=== PATIENT | male | born 1950 | race Caucasian/White ===

== ENCOUNTER 2018-06-20 10:29 | Inpatient (IN) | payer MEDICARE | END 2018-06-22 11:15 | disposition home or self-care (01) | LOC: ER 10:29 → ED HOLD 14:22 → PCU 3S 19:33 | DX: R07.9 Chest pain, unspecified (principal); I48.2 Chronic atrial fibrillation; E11.8 Type 2 diabetes mellitus with unspecified complications ==

== ENCOUNTER 2018-07-09 05:46 | Inpatient (IN) | payer MEDICARE ==
[~2018-07-09] VITALS: Ht 177.8 cm; Wt 96.4 kg
[~2018-07-09 05:46] MED LIST: ATOR40TA71 PO; CARV25TA2 PO; CLON0.3T PO; DILT240C PO; FLEC100T PO; LOSA25TA41 PO; METF-950 PO; RIVA20TA PO
[2018-07-09] MEDS ORDERED: normal saline 1000ml 1,000 ML IV ONE (06:30)
[2018-07-09] MEDS ORDERED: ondansetron/PF 4mg/2ml inj IV ONE (06:30)
[2018-07-09] MEDS ORDERED: HYDROcodone/acetaminophen 5mg/325mg tablet PO ONE (06:35)
[2018-07-09 07:37] LABS: BASOPHILS % (AUTO) 0.3 % (0-1); EOSINOPHILS % (AUTO) 0.2 % (0-6); HEMATOCRIT 48.9 % (42.0-52.0); HEMOGLOBIN 17.1 g/dl (14.0-17.9); LYMPHOCYTES # (AUTO) 1.5 X10'3 (1.1-4.8); LYMPHOCYTES % (AUTO) 13.9 % (21-51); MEAN CORPUSCULAR HEMOGLOBIN 31.5 PG (27.0-31.0); MEAN CORPUSCULAR HGB CONC 35.1 g/dL (33.0-36.5); MEAN CORPUSCULAR VOLUME 89.9 FL (78-98); MEAN PLATELET VOLUME 8.5 FL (7.4-10.4); MONOCYTES # (AUTO) 0.8 X10'3 (0-0.9); MONOCYTES % (AUTO) 7.6 % (2-12); NEUTROPHILS # (AUTO) 8.4 X10'3 (1.8-7.7); PLATELET COUNT 292 X10'3 (140-440); RED BLOOD COUNT 5.44 X10'6 (4.70-6.10); RED CELL DISTRIBUTION WIDTH 13.4 % (11.5-14.5); WHITE BLOOD COUNT 10.8 X10'3 (4.5-11.0)
[2018-07-09 07:48] LABS: ALANINE AMINOTRANSFERASE 25 U/L (12-78); ALBUMIN 3.8 G/DL (3.4-5.0); ALBUMIN/GLOBULIN RATIO 0.9 (1.1-1.5); ALKALINE PHOSPHATASE 155 IU/L (46-116); ANION GAP 8 (8-16); ASPARTATE AMINO TRANSFERASE 15 U/L (10-37); BILIRUBIN,TOTAL 0.9 MG/DL (0.1-1.0); BLOOD UREA NITROGEN 17 MG/DL (7-18); BUN/CREATININE RATIO 16.2 (5.4-32.0); CALCIUM 9.9 MG/DL (8.5-10.1); CHLORIDE 100 MMOL/L (99-107); CREATININE 1.05 MG/DL (0.60-1.10); GLUCOSE 149 MG/DL (70-104); LIPASE 69 U/L (73-393); POTASSIUM 3.5 MMOL/L (3.5-5.1); SODIUM 138 MMOL/L (135-145); TOTAL CARBON DIOXIDE 29.8 MMOL/L (24-32); TOTAL PROTEIN 8.2 G/DL (6.4-8.2); eGFR 70 ML/MIN
[2018-07-09] MEDS ORDERED: proCHLORperazine 10 MG/2 ml inj IV ONE (07:50)
[2018-07-09] MEDS ORDERED: morphine 4 MG/ML inj SYRINge IV ONE (07:50)
[2018-07-09 07:54] LABS: INR 1.2 INR; PARTIAL THROMBOPLASTIN TIME 34 SECONDS (22-32); PROTHROMBIN TIME 12.1 SECONDS (9.0-12.0)
[2018-07-09] MEDS ORDERED: magnesium 2GM in 50ml NS 50 ML IV PRN (09:55)
[2018-07-09] MEDS ORDERED: potassium Cl 20 mEq SR tablet PO PRN ×2 (09:55)
[2018-07-09] MEDS ORDERED: magnesium Cl slow-release 64mg tablet PO PRN (09:55)
[2018-07-09] MEDS ORDERED: magnesium 4gm in 100ml NS 100 ML IV PRN (09:55)
[2018-07-09] MEDS ORDERED: magnesium hydroxide 30ml (MOM) UD suspension PO PRN (09:55)
[2018-07-09] MEDS ORDERED: ondansetron/PF 4mg/2ml inj IV PRN (09:55)
[2018-07-09] MEDS ORDERED: morphine 4 MG/ML inj SYRINge IV PRN (09:55)
[2018-07-09] MEDS ORDERED: acetaminophen 325mg tablet PO PRN ×2 (09:55)
[2018-07-09] MEDS ORDERED: HYDROcodone/acetaminophen 5mg/325mg tablet PO PRN (09:55)
[2018-07-09] MEDS ORDERED: potassium Cl 40MEQ/NS 500ml 500 ML IV PRN ×2 (09:55)
[2018-07-09] MEDS ORDERED: dextrose 50%-water 50ml dispensing syringe IV PRN ×2 (10:10)
[2018-07-09] MEDS ORDERED: insulin Lispro (HumaLOG) vial - multi-dose SQ SCH (10:10)
[2018-07-09] MEDS ORDERED: glucagon, human recombinant 1mg kit SUBCUT PRN (10:10)
[2018-07-09] MEDS ORDERED: dextrose ORAL solution 15 GM/59 ML bottle PO PRN ×2 (10:10)
[2018-07-09] MEDS ORDERED: MESSAGE TO PHARMACY PO ONE (10:10)
[2018-07-09] MEDS: normal saline 1000ml 1,000 ML IV SCH ×3 (10:13→20:45)
--- NOTE | 2018-07-09 13:12 | NUR ---
Called into pt room after family noticied blood drainage from NG tube. Small amount of bright red blood seen in tubing. Discussed findings with KALLIE Victoria; who advises monitoring drainage for further blood return.
[2018-07-09 13:28] LABS: HEMOGLOBIN A1C 6.2 % (4.5-6.2)
[2018-07-09 16:38] LABS: CLARITY,URINE CLEAR (Clear); COLOR,URINE YELLOW (Yellow); GLUCOSE, URINE NEGATIVE (Neg); KETONES,URINE NEGATIVE (Neg); LEUKOCYTE ESTERASE ,URINE NEGATIVE (Neg); NITRITES, URINE NEGATIVE (Neg); OCCULT BLOOD,URINE TRACE-INTACT (Neg); PH,URINE 6.5 (4.8-8.0); PROTEIN,URINE 30 mg/dl (Neg); UROBILINOGEN,URINE 0.2 E.U/dL (0.2-1.0)
[2018-07-09 16:43] LABS: UA COLLECTION TYPE URINAL
[2018-07-09 16:45] LABS: BACTERIA,URINE NONE SEEN /HPF (Neg); MUCUS STRANDS NONE SEEN /LPF (Neg); RBC,URINE 0-2 /HPF (0-2); SQUAMOUS EPITHELIAL CELL,UR NONE SEEN /LPF (FEW); WBC,URINE NONE SEEN /HPF (0-4)
--- NOTE | 2018-07-09 17:40 | NUR ---
Patient assisted to a position of comfort on hospital bed. Patient c/o increased chronic neck, patient was given morphine 1 mg with no relief and has an order for norco, but patient is NPO currently with NG tube placed. Dr. Kemp page regarding pain complaint.
--- NOTE | 2018-07-09 17:44 | NUR ---
Spoke to Dr. Kemp regarding pt's pain and pain medication ordered. Per MD, given the pt's history she is not comfortable ordering anything further for the pt's pain.
--- NOTE | 2018-07-09 17:50 | NUR ---
Spoke with Dr. Kemp regarding need to have her come to evaluate patient, due to increased dark bloody emesis from NG tube. Dr. Kemp stated that she would come and see patient as soon as she could.
[2018-07-09 18:00] VITALS: BP 164/83
--- NOTE | 2018-07-09 18:10 | NUR ---
Dr. Kemp in patients room to evaluate him, Dr. Kemp stated to give Protonix 40 mg IV x1 stat once now, hemogram draw STAT now and chest xray to check for NG tube placement. Will place orders per MD.
[2018-07-09] MEDS ORDERED: pantoprazole 40 MG vial IV ONE ×3 (18:20→19:20)
--- NOTE | 2018-07-09 18:42 | NUR ---
Spoke with Dr. Kemp regarding patient, She requested for me to place verbal order for protonix drip and to perform hemogram Q8H as a timed draw. Patient will not be receiving CT with IV contrast at this time. Dr. Kemp also stated that she has spoken with Dr. Copeland at this time there is no indication for surgical intervention and patient needs to be placed on gravity suction, no wall suction. Patient will need a total of 80 mg IV protonix and Protonix drip at a rate of 8 mg/hr. Dr. Copeland stated that if patient is continuing to bleed as evident by a decrease in H&H, need to contact him for Endoscopy. Patient may need a repeat CT scan, if no bleeding per Dr. Kemp.
--- NOTE | 2018-07-09 18:58 | NUR ---
Bijan ROTHMAN aware of new orders.
[2018-07-09] MEDS: pantoprazole 40MG/NS 100ML BAG 100 ML IV SCH ×2 (19:00→20:45)
[2018-07-09 19:04] LABS: HEMATOCRIT 50.6 % (42.0-52.0); HEMOGLOBIN 16.9 g/dl (14.0-17.9); MEAN CORPUSCULAR HEMOGLOBIN 30.5 PG (27.0-31.0); MEAN CORPUSCULAR HGB CONC 33.3 g/dL (33.0-36.5); MEAN CORPUSCULAR VOLUME 91.6 FL (78-98); MEAN PLATELET VOLUME 8.2 FL (7.4-10.4); PLATELET COUNT 302 X10'3 (140-440); RED BLOOD COUNT 5.53 X10'6 (4.70-6.10); RED CELL DISTRIBUTION WIDTH 13.6 % (11.5-14.5); WHITE BLOOD COUNT 12.2 X10'3 (4.5-11.0)
[2018-07-09] MEDS: metroNIDAZOLE-Flagyl 500mg/NS 100 ML IV SCH (19:31)
[2018-07-09] MEDS ORDERED: diatr meglu/diatrizoate 30ml oral sol.-(3 dose) bottle PO ONE (20:00)
[2018-07-09] MEDS ORDERED: heparin, porcine 5000 units/ml vial SQ SCH (20:00)
[2018-07-09] MEDS ORDERED: hydrALAZINE 20mg/ml inj. IV PRN (20:35)
[2018-07-09] MEDS ORDERED: insulin glargine (Lantus) pen - multi-dose SQ SCH (21:00)
[2018-07-09] MEDS ORDERED: temazepam 15mg capsule PO PRN (21:00)
[2018-07-09] MEDS: morphine 4 MG/ML inj SYRINge IV PRN (21:56)
[2018-07-10] VITALS: BP 120/81
[2018-07-10 00:30] VITALS: BP 164/90
[2018-07-10] MEDS ORDERED: carVEDilol 12.5mg tablet PO ONE (00:45)
[2018-07-10] MEDS: pantoprazole 40MG/NS 100ML BAG 100 ML IV SCH ×2 (01:00→08:32)
[2018-07-10 02:31] LABS: BASOPHILS # (AUTO) 0.1 X10'3 (0-0.2); EOSINOPHILS % (AUTO) 0.3 % (0-6); HEMATOCRIT 46.7 % (42.0-52.0); HEMOGLOBIN 15.5 g/dl (14.0-17.9); LYMPHOCYTES # (AUTO) 1.3 X10'3 (1.1-4.8); LYMPHOCYTES % (AUTO) 12.2 % (21-51); MEAN CORPUSCULAR HEMOGLOBIN 30.5 PG (27.0-31.0); MEAN CORPUSCULAR HGB CONC 33.1 g/dL (33.0-36.5); MEAN PLATELET VOLUME 7.7 FL (7.4-10.4); MONOCYTES # (AUTO) 1.2 X10'3 (0-0.9); MONOCYTES % (AUTO) 11.4 % (2-12); NEUTROPHILS # (AUTO) 8.1 X10'3 (1.8-7.7); NEUTROPHILS % (AUTO) 75.1 % (42-75); PLATELET COUNT 250 X10'3 (140-440); RED BLOOD COUNT 5.07 X10'6 (4.70-6.10); RED CELL DISTRIBUTION WIDTH 13.6 % (11.5-14.5); WHITE BLOOD COUNT 10.8 X10'3 (4.5-11.0)
[2018-07-10 02:52] LABS: ALANINE AMINOTRANSFERASE 22 U/L (12-78); ALBUMIN 3.2 G/DL (3.4-5.0); ALBUMIN/GLOBULIN RATIO 0.9 (1.1-1.5); ALKALINE PHOSPHATASE 126 IU/L (46-116); ANION GAP 7 (8-16); ASPARTATE AMINO TRANSFERASE 14 U/L (10-37); BLOOD UREA NITROGEN 16 MG/DL (7-18); BUN/CREATININE RATIO 14.7 (5.4-32.0); CALCIUM 8.6 MG/DL (8.5-10.1); CHLORIDE 106 MMOL/L (99-107); CREATININE 1.09 MG/DL (0.60-1.10); GLUCOSE 126 MG/DL (70-104); MAGNESIUM 1.9 MG/DL (1.5-2.4); POTASSIUM 3.6 MMOL/L (3.5-5.1); SODIUM 140 MMOL/L (135-145); TOTAL CARBON DIOXIDE 27.4 MMOL/L (24-32); TOTAL PROTEIN 6.7 G/DL (6.4-8.2); eGFR 67 ML/MIN
[2018-07-10 04:01] VITALS: BP 153/68
--- NOTE | 2018-07-10 06:41 | NUR ---
Patient in room [facility] 346. I have received report from Bijan ROTHMAN and had the opportunity to ask questions and assume patient care.
--- NOTE | 2018-07-10 06:50 | NUR ---
Problems reprioritized. Patient report given, questions answered & plan of care reviewed with Camrelina ROTMHAN.
[2018-07-10 07:00] VITALS: BP 160/85
[2018-07-10] MEDS: metroNIDAZOLE-Flagyl 500mg/NS 100 ML IV SCH ×2 (07:13→07:16)
[2018-07-10] MEDS ORDERED: losartan 25mg tablet PO SCH (08:00)
[2018-07-10] MEDS ORDERED: diltiazem CD 120mg capsule (once-daily) PO SCH (08:00)
[2018-07-10] MEDS ORDERED: K and/or MAG REPLACEMENT MC SCH (08:00)
[2018-07-10] MEDS ORDERED: carVEDilol 12.5mg tablet PO SCH ×2 (08:00→20:00)
[2018-07-10] MEDS ORDERED: cloNIDine 0.1 mg tablet PO SCH (08:00)
[2018-07-10] MEDS ORDERED: flecainide 50mg tablet PO SCH (08:00)
[2018-07-10] MEDS ORDERED: atorvastatin 20mg tablet PO SCH (08:00)
[2018-07-10] MEDS: morphine 4 MG/ML inj SYRINge IV PRN (09:43)
--- NOTE | 2018-07-10 11:11 | NUR ---
D/c'd NGT as per MD order. Patient tolerated well
--- NOTE | 2018-07-10 11:39 | NUR ---
DM consult: Pt with A1c 6.2; DM ed not warranted at this time. Will continue to follow. Addendum: 07/10/18 at [address] Amended: Links added.
[2018-07-10 12:00] VITALS: BP 138/72
[2018-07-10] MEDS ORDERED: PANT40TA4 PO (12:59)
--- NOTE | 2018-07-10 13:39 | NUR ---
Discharge instructions given to patient, patient verbalized understanding of all instructions made. Patient tolerated the clear liquid lunch served to him. Peripheral IV catheter removed, tip intact. Instructed patient to ensure he has all his belongings with him before leaving. Written yellow prescription for Pantoprazole given to patient. Encouraged patient to sign up for Diabetes Survival skills class offered at [facility]. Latest A1C of 6.2 was discussed with patient.
== END 2018-07-10 13:50 | disposition home or self-care (01) | DRG 390 ==
LOC: ER 05:47 → ED HOLD 09:52 → SUR 3N 19:20
PROVIDERS: ADMIT Internal Medicine; ATTEND Family Medicine
PROC: 0D9670Z Drainage of Stomach with Drainage Device, Via Natural or Artificial Opening (ICD-10-PCS; principal; 2018-07-09)
DX: K56.609 Unspecified intestinal obstruction, unspecified as to partial versus complete obstruction (principal); E11.9 Type 2 diabetes mellitus without complications; E78.5 Hyperlipidemia, unspecified; F12.10 Cannabis abuse, uncomplicated; G89.4 Chronic pain syndrome; I10 Essential (primary) hypertension; I25.10 Atherosclerotic heart disease of native coronary artery without angina pectoris; M54.9 Dorsalgia, unspecified; I48.2 Chronic atrial fibrillation; K21.9 Gastro-esophageal reflux disease without esophagitis; Z79.01 Long term (current) use of anticoagulants; Z79.84 Long term (current) use of oral hypoglycemic drugs; Z79.899 Other long term (current) drug therapy; Z82.3 Family history of stroke; Z82.49 Family history of ischemic heart disease and other diseases of the circulatory system; Z87.891 Personal history of nicotine dependence; Z88.5 Allergy status to narcotic agent
CPT/HCPCS: 36415; 71045; 74018; 74176; 76700; 80053; 81001; 82948; 83036; 83605; 83690; 83735; 84484; 85025; 85027; 85610; 85730; 87070; 93005; 96361; 96374; 96375; 99285; C9113; G0378; J0360; J0780; J1815; J2270; J2405; J3490; J7030; Q9963

== ENCOUNTER 2018-09-03 09:23 | Emergency (ER) | payer MEDICARE, OTHER ==
[~2018-09-03] VITALS: Ht 165.1 cm; Wt 95.3 kg
[~2018-09-03 09:23] MED LIST changes: +PANT40TA4 PO
--- NOTE | 2018-09-03 10:48 | NUR ---
Cancel trauma per .Guero ROTHMAN aware.
--- NOTE | 2018-09-03 10:48 | NUR ---
Dr. Moody cleared from trauma
[2018-09-03 10:51] VITALS: BP 181/109
[2018-09-03] MEDS ORDERED: ONDA4TAB6 PO (11:13)
[2018-09-03] MEDS ORDERED: HYDR-3965 PO (11:13)
[2018-09-03] MEDS ORDERED: TETanus/Pertussis (Acell)/Diphther VAC/PF (Tdap-Adult) 0.5ml syringe IM ONE (11:20)
[2018-09-03] MEDS ORDERED: acetaminophen 325mg tablet PO ONE (11:35)
== END 2018-09-03 12:55 | disposition home or self-care (01) ==
LOC: ER 09:24
DX: S06.0X0A Concussion without loss of consciousness, initial encounter (principal); S82.832A Other fracture of upper and lower end of left fibula, initial encounter for closed fracture; S90.02XA Contusion of left ankle, initial encounter; S80.212A Abrasion, left knee, initial encounter; I10 Essential (primary) hypertension; I48.91 Unspecified atrial fibrillation; E11.9 Type 2 diabetes mellitus without complications; G89.29 Other chronic pain; Z56.0 Unemployment, unspecified; Z88.5 Allergy status to narcotic agent; Z79.899 Other long term (current) drug therapy; W01.0XXA Fall on same level from slipping, tripping and stumbling without subsequent striking against object, initial encounter; Y93.89 Activity, other specified; Y92.89 Other specified places as the place of occurrence of the external cause; Y99.8 Other external cause status
CPT/HCPCS: 29515; 70450; 72125; 73610; 90471; 90715; 99284

== ENCOUNTER 2018-09-07 00:58 | Inpatient (IN) | payer MEDICARE, OTHER ==
[2018-09-07] VITALS (7 sets, daily range): BP systolic 103–165; BP diastolic 55–83
[~2018-09-07] VITALS: Ht 165.1 cm; Wt 98.0 kg
[~2018-09-07 00:58] MED LIST changes: +HYDR-3965 PO; +ONDA4TAB6 PO
[2018-09-07 01:28] LABS: BASOPHILS % (AUTO) 0.5 % (0-1); EOSINOPHILS # (AUTO) 0.1 X10'3 (0-0.9); EOSINOPHILS % (AUTO) 1.5 % (0-6); HEMATOCRIT 42.9 % (42.0-52.0); HEMOGLOBIN 14.6 g/dl (14.0-17.9); LYMPHOCYTES # (AUTO) 1.5 X10'3 (1.1-4.8); LYMPHOCYTES % (AUTO) 19.3 % (21-51); MEAN CORPUSCULAR HEMOGLOBIN 31.3 PG (27.0-31.0); NEUTROPHILS # (AUTO) 5.3 X10'3 (1.8-7.7); NEUTROPHILS % (AUTO) 66.7 % (42-75); PLATELET COUNT 235 X10'3 (140-440); RED BLOOD COUNT 4.66 X10'6 (4.70-6.10); RED CELL DISTRIBUTION WIDTH 13.9 % (11.5-14.5); WHITE BLOOD COUNT 7.9 X10'3 (4.5-11.0)
[2018-09-07 01:41] LABS: PARTIAL THROMBOPLASTIN TIME 28 SECONDS (22-32)
[2018-09-07 01:44] LABS: ALANINE AMINOTRANSFERASE 23 U/L (12-78); ALBUMIN 3.1 G/DL (3.4-5.0); ALBUMIN/GLOBULIN RATIO 0.8 (1.1-1.5); ALKALINE PHOSPHATASE 104 IU/L (46-116); ANION GAP 10 (8-16); ASPARTATE AMINO TRANSFERASE 15 U/L (10-37); BILIRUBIN,TOTAL 0.7 MG/DL (0.1-1.0); BLOOD UREA NITROGEN 19 MG/DL (7-18); BUN/CREATININE RATIO 23.2 (5.4-32.0); CHLORIDE 102 MMOL/L (99-107); CREATININE 0.82 MG/DL (0.60-1.10); ETHANOL < 0.010 GM/DL (0.0-0.010); GLUCOSE 135 MG/DL (70-104); POTASSIUM 3.6 MMOL/L (3.5-5.1); SODIUM 137 MMOL/L (135-145); TOTAL CARBON DIOXIDE 24.6 MMOL/L (24-32); eGFR > 90 ML/MIN
[2018-09-07 02:06] LABS: URINE AMPHETAMINE SCREEN NEGATIVE (Neg); URINE BARBITUATE SCREEN NEGATIVE (Neg); URINE BENZODIAZEPINES SCREEN NEGATIVE (Neg); URINE CANNABINOID SCREEN NEGATIVE (Neg); URINE COCAINE SCREEN NEGATIVE (Neg); URINE METHADONE SCREEN NEGATIVE (Neg); URINE OPIATE SCREEN POSITIVE (Neg); URINE PHENCYCLIDINE SCREEN NEGATIVE (Neg)
[2018-09-07] MEDS ORDERED: acetaminophen 325mg tablet PO ONE (02:35)
[2018-09-07] MEDS ORDERED: diltiazem 5mg/ml 5ml inj. IV ONE (02:40)
[2018-09-07] MEDS ORDERED: HYDROcodone/acetaminophen 10/325mg tab PO ONE (02:45)
[2018-09-07] MEDS ORDERED: ondansetron 4mg rapidly disintigrating tab PO ONE (02:45)
[2018-09-07] MEDS: normal saline 1000ml 1,000 ML IV SCH (03:27)
[2018-09-07] MEDS ORDERED: acetaminophen 325mg tablet PO PRN (03:30)
[2018-09-07] MEDS ORDERED: ondansetron/PF 4mg/2ml inj IV PRN (03:30)
[2018-09-07] MEDS ORDERED: magnesium hydroxide 30ml (MOM) UD suspension PO PRN (03:30)
[2018-09-07] MEDS ORDERED: mag hydrox/Alum hydrox/simeth 30ml oral suspension PO PRN (03:30)
--- NOTE | 2018-09-07 04:05 | NUR ---
I have received report from STEPHAN SCOTT IN ED and had the opportunity to ask questions and assume patient care. AWAITING PATIENT ARRIVAL TO UNIT.
--- NOTE | 2018-09-07 04:15 | NUR ---
PATIENT ARRIVED TO UNIT VIA GURNEY. ABLE TO MOVE SELF ONTO BED IN 3016A. A&O X4. STABLE AT THIS TIME. 2L NC AND 20G IN R HAND SL. WILL CONTINUE TO MONITOR CLOSELY.
--- NOTE | 2018-09-07 06:00 | NUR ---
Patient in room PCU 3016. I have received report from Edinson ROTHMAN and had the opportunity to ask questions and assume patient care.
--- NOTE | 2018-09-07 06:23 | NUR ---
Problems reprioritized. Patient report given, questions answered & plan of care reviewed with STEPHAN BILLY AND STEPHAN TERRAZAS.
[2018-09-07] MEDS: atorvastatin 20mg tablet PO SCH (07:48)
[2018-09-07] MEDS: diltiazem CD 120mg capsule (once-daily) PO SCH (07:49)
[2018-09-07] MEDS: carVEDilol 12.5mg tablet PO SCH ×2 (07:49→20:45)
[2018-09-07] MEDS: flecainide 50mg tablet PO SCH ×2 (07:51→20:44)
[2018-09-07] MEDS: HYDROcodone/acetaminophen 10/325mg tab PO PRN ×2 (07:51→14:22)
[2018-09-07] MEDS: metFORMIN 500mg tablet PO SCH ×2 (07:52→20:44)
[2018-09-07] MEDS: cloNIDine 0.1 mg tablet PO SCH ×2 (08:15→20:44)
[2018-09-07] MEDS: losartan 25mg tablet PO SCH (08:19)
[2018-09-07] MEDS ORDERED: magnesium 4gm in 100ml NS 100 ML IV PRN (08:40)
[2018-09-07] MEDS ORDERED: magnesium Cl slow-release 64mg tablet PO PRN (08:40)
[2018-09-07] MEDS ORDERED: dextrose 50%-water 50ml dispensing syringe IV PRN ×2 (08:40)
[2018-09-07] MEDS ORDERED: insulin Lispro (HumaLOG) vial - multi-dose SQ SCH (08:40)
[2018-09-07] MEDS ORDERED: glucagon, human recombinant 1mg kit SUBCUT PRN (08:40)
[2018-09-07] MEDS ORDERED: potassium Cl 20 mEq SR tablet PO PRN ×2 (08:40)
[2018-09-07] MEDS ORDERED: MESSAGE TO PHARMACY PO ONE (08:40)
[2018-09-07] MEDS ORDERED: dextrose ORAL solution 15 GM/59 ML bottle PO PRN ×2 (08:40)
[2018-09-07] MEDS ORDERED: potassium CL 10mEq/100ml bag 100 ML IV PRN (08:40)
--- NOTE | 2018-09-07 10:23 | NUR ---
Patient taken down to MRI by staff.
--- NOTE | 2018-09-07 10:50 | NUR ---
PAGER ID: [phone] MESSAGE: AndreiaEnrike. MRI called about a possible stroke, there is no official report at this time. Zaynab [phone]
[2018-09-07 11:33] LABS: CHOL/HDL RATIO 3.8 (0.00-4.99); CHOLESTEROL 135 MG/DL (0-200); HDL CHOLESTEROL 36 MG/DL (35-60); LDL CHOLESTEROL 84 MG/DL (50-100); TRIGLYCERIDES 64 MG/DL (20-135)
[2018-09-07] MEDS ORDERED: aspirin 325mg tablet PO ONE (17:30)
--- NOTE | 2018-09-07 18:15 | NUR ---
Patient in room PCU 3016. I have received report from Zaynab ROTMHAN and had the opportunity to ask questions and assume patient care. Patient resting, will continue to monitor.
[2018-09-07] MEDS: rivaroxaban 20mg tablet PO SCH (20:45)
--- NOTE | 2018-09-07 20:55 | NUR ---
Blood pressure medications given to patient per Dr. Bourgeois orders. Addendum: 09/08/18 at 0031 by Lupe Freeman RN To keep diastolic below 90.
[2018-09-07] MEDS: insulin glargine (Lantus) pen - multi-dose SQ SCH (21:00)
[2018-09-08] VITALS (9 sets, daily range): BP systolic 86–149; BP diastolic 39–91
--- NOTE | 2018-09-08 00:31 | NUR ---
Pts BP borderline hypotensive, asymptomatic, called up to neuro floor and spoke with charge nurse Marylou. She said as long as patients stroke symptoms are unchanged and not worsening, to just continue monitoring pt. Neuro checks q4 hours being done as ordered. Will continue to monitor.
--- NOTE | 2018-09-08 00:45 | NUR ---
Pt BP 86/47 (57). 250cc bolus of NS given. Pt tolerated well. Will continue to monitor.
--- NOTE | 2018-09-08 02:36 | NUR ---
Patients BP 88/37 (51). 250cc bolus given. Pt tolerated well. Will continue to monitor.
--- NOTE | 2018-09-08 06:05 | NUR ---
Patient in room PCU 3016. I have received report from Lupe ROTHMAN and had the opportunity to ask questions and assume patient care.
--- NOTE | 2018-09-08 06:13 | NUR ---
Problems reprioritized. Patient report given, questions answered & plan of care reviewed with Roberto ROTHMAN.
--- NOTE | 2018-09-08 06:39 | NUR ---
[place] documentation: I have reviewed and agree with all interventions, assessments performed and documented by Jackie ROTHMAN. [place] Medication Administration: For this medication-pass time frame, all medication were reviewed, dispensed, administered and documented per hospital policy by Jackie ROTHMAN.
[2018-09-08 07:15] LABS: BASOPHILS % (AUTO) 0.4 % (0-1); EOSINOPHILS # (AUTO) 0.1 X10'3 (0-0.9); EOSINOPHILS % (AUTO) 1.1 % (0-6); HEMATOCRIT 43.6 % (42.0-52.0); HEMOGLOBIN 14.6 g/dl (14.0-17.9); LYMPHOCYTES # (AUTO) 1.8 X10'3 (1.1-4.8); MEAN CORPUSCULAR HEMOGLOBIN 31.1 PG (27.0-31.0); MEAN CORPUSCULAR HGB CONC 33.5 g/dL (33.0-36.5); MEAN CORPUSCULAR VOLUME 92.9 FL (78-98); MEAN PLATELET VOLUME 8.2 FL (7.4-10.4); MONOCYTES # (AUTO) 0.8 X10'3 (0-0.9); NEUTROPHILS # (AUTO) 5.2 X10'3 (1.8-7.7); NEUTROPHILS % (AUTO) 65.5 % (42-75); PLATELET COUNT 269 X10'3 (140-440); RED CELL DISTRIBUTION WIDTH 13.8 % (11.5-14.5); WHITE BLOOD COUNT 7.9 X10'3 (4.5-11.0)
[2018-09-08] MEDS: atorvastatin 20mg tablet PO SCH (07:35)
[2018-09-08] MEDS: diltiazem CD 120mg capsule (once-daily) PO SCH (07:36)
[2018-09-08] MEDS: cloNIDine 0.1 mg tablet PO SCH (07:38)
[2018-09-08] MEDS: aspirin 81mg tab.chew PO SCH (07:39)
[2018-09-08] MEDS: losartan 25mg tablet PO SCH (07:39)
[2018-09-08] MEDS: flecainide 50mg tablet PO SCH ×2 (07:39→21:34)
[2018-09-08] MEDS: carVEDilol 12.5mg tablet PO SCH ×2 (07:40→21:35)
[2018-09-08] MEDS: metFORMIN 500mg tablet PO SCH ×2 (07:41→21:34)
[2018-09-08 07:44] LABS: ALANINE AMINOTRANSFERASE 30 U/L (12-78); ALBUMIN 3.1 G/DL (3.4-5.0); ALBUMIN/GLOBULIN RATIO 0.8 (1.1-1.5); ALKALINE PHOSPHATASE 105 IU/L (46-116); ANION GAP 5 (8-16); ASPARTATE AMINO TRANSFERASE 50 U/L (10-37); BILIRUBIN,TOTAL 0.6 MG/DL (0.1-1.0); BLOOD UREA NITROGEN 13 MG/DL (7-18); C-REACTIVE PROTEIN 1.34 MG/DL (0.0-0.5); CALCIUM 8.5 MG/DL (8.5-10.1); CHLORIDE 103 MMOL/L (99-107); CREATININE 0.81 MG/DL (0.60-1.10); GLUCOSE 117 MG/DL (70-104); PHOSPHORUS 2.9 MG/DL (2.3-4.5); SODIUM 137 MMOL/L (135-145); TOTAL CARBON DIOXIDE 29.1 MMOL/L (24-32); eGFR > 90 ML/MIN
[2018-09-08] MEDS: HYDROcodone/acetaminophen 5mg/325mg tablet PO PRN ×2 (11:49→19:10)
--- NOTE | 2018-09-08 15:37 | NUR ---
Paged Dr. Olvera PAGER ID: [phone] MESSAGE: Roberto ROTHMAN [phone] [id number]: Edis Calvert: d/c BG checks? BGs 100s-120s, pt manages with Metformin; AIC 5.8. 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 BP 110s now. Thank you
--- NOTE | 2018-09-08 18:25 | NUR ---
Problems reprioritized. Patient report given, questions answered & plan of care reviewed with Lupe ROTHMAN.
--- NOTE | 2018-09-08 18:42 | NUR ---
Patient in room PCU 3016. I have received report from Iban ROTHMAN and had the opportunity to ask questions and assume patient care. Checked on patient, he is resting in bed, no current needs, will continue to monitor.
[2018-09-08] MEDS: insulin glargine (Lantus) pen - multi-dose SQ SCH (21:00)
[2018-09-08] MEDS: rivaroxaban 20mg tablet PO SCH (21:34)
[2018-09-09 03:00] VITALS: BP 129/66
[2018-09-09] MEDS: normal saline 1000ml 1,000 ML IV SCH (04:24)
[2018-09-09 05:38] LABS: BASOPHILS % (AUTO) 0.3 % (0-1); EOSINOPHILS # (AUTO) 0.1 X10'3 (0-0.9); HEMATOCRIT 40.4 % (42.0-52.0); HEMOGLOBIN 13.8 g/dl (14.0-17.9); LYMPHOCYTES # (AUTO) 1.8 X10'3 (1.1-4.8); LYMPHOCYTES % (AUTO) 19.6 % (21-51); MEAN CORPUSCULAR HEMOGLOBIN 31.6 PG (27.0-31.0); MEAN CORPUSCULAR HGB CONC 34.1 g/dL (33.0-36.5); MEAN CORPUSCULAR VOLUME 92.5 FL (78-98); MEAN PLATELET VOLUME 8.3 FL (7.4-10.4); MONOCYTES # (AUTO) 1.1 X10'3 (0-0.9); MONOCYTES % (AUTO) 12.2 % (2-12); NEUTROPHILS # (AUTO) 6.2 X10'3 (1.8-7.7); NEUTROPHILS % (AUTO) 66.9 % (42-75); PLATELET COUNT 251 X10'3 (140-440); RED BLOOD COUNT 4.36 X10'6 (4.70-6.10); RED CELL DISTRIBUTION WIDTH 13.5 % (11.5-14.5); WHITE BLOOD COUNT 9.3 X10'3 (4.5-11.0)
[2018-09-09 06:00] VITALS: BP 130/71
--- NOTE | 2018-09-09 06:03 | NUR ---
Problems reprioritized. Patient report given, questions answered & plan of care reviewed with Chriss ROTHMAN.
[2018-09-09 06:12] LABS: ALANINE AMINOTRANSFERASE 29 U/L (12-78); ALBUMIN 2.9 G/DL (3.4-5.0); ALBUMIN/GLOBULIN RATIO 0.8 (1.1-1.5); ALKALINE PHOSPHATASE 95 IU/L (46-116); ANION GAP 6 (8-16); ASPARTATE AMINO TRANSFERASE 63 U/L (10-37); BILIRUBIN,TOTAL 0.5 MG/DL (0.1-1.0); BLOOD UREA NITROGEN 11 MG/DL (7-18); BUN/CREATININE RATIO 13.3 (5.4-32.0); CALCIUM 8.4 MG/DL (8.5-10.1); CHLORIDE 104 MMOL/L (99-107); CREATININE 0.83 MG/DL (0.60-1.10); GLUCOSE 119 MG/DL (70-104); MAGNESIUM 2.3 MG/DL (1.5-2.4); PHOSPHORUS 2.3 MG/DL (2.3-4.5); POTASSIUM 4.1 MMOL/L (3.5-5.1); SODIUM 137 MMOL/L (135-145); TOTAL CARBON DIOXIDE 27.4 MMOL/L (24-32); TOTAL PROTEIN 6.5 G/DL (6.4-8.2); eGFR > 90 ML/MIN
[2018-09-09] MEDS: diltiazem CD 120mg capsule (once-daily) PO SCH (07:22)
[2018-09-09] MEDS: losartan 25mg tablet PO SCH (07:22)
[2018-09-09] MEDS: metFORMIN 500mg tablet PO SCH (07:23)
[2018-09-09] MEDS: flecainide 50mg tablet PO SCH (07:23)
[2018-09-09] MEDS: carVEDilol 12.5mg tablet PO SCH (07:23)
[2018-09-09] MEDS: atorvastatin 20mg tablet PO SCH (07:23)
[2018-09-09] MEDS: aspirin 81mg tab.chew PO SCH (09:21)
[2018-09-09] MEDS: HYDROcodone/acetaminophen 10/325mg tab PO PRN (09:33)
[2018-09-09] MEDS ORDERED: ASPI-1265 PO (09:51)
[2018-09-09 11:00] VITALS: BP 130/62
--- NOTE | 2018-09-09 12:18 | NUR ---
discharge education provided including follow up directions; all questions answered. pt removed from cardiac monitoring, IV removed; cannula intact. pt wheeled down with all belongings.
[2018-09-10] MEDS ORDERED: GUAI120L55 PO (00:30)
[2018-09-10] MEDS ORDERED: ONDA4TAB6 PO (00:30)
[2018-09-10] MEDS ORDERED: BENZ-16 PO (00:30)
[2018-09-10] MEDS ORDERED: AZIT500T PO (00:30)
== END 2018-09-09 12:20 | disposition home health service (06) | DRG 309 ==
LOC: ER 00:59 → PCU 3S 04:24 → CMPBEDREQ 04:32
PROVIDERS: ADMIT Internal Medicine; ATTEND Family Medicine
DX: I48.91 Unspecified atrial fibrillation (principal); D68.69 Other thrombophilia; G44.009 Cluster headache syndrome, unspecified, not intractable; E11.9 Type 2 diabetes mellitus without complications; G89.29 Other chronic pain; M54.9 Dorsalgia, unspecified; E78.5 Hyperlipidemia, unspecified; H54.7 Unspecified visual loss; I10 Essential (primary) hypertension; I65.21 Occlusion and stenosis of right carotid artery; Z77.090 Contact with and (suspected) exposure to asbestos; Z79.01 Long term (current) use of anticoagulants; Z79.82 Long term (current) use of aspirin; Z79.899 Other long term (current) drug therapy; Z82.3 Family history of stroke; Z82.49 Family history of ischemic heart disease and other diseases of the circulatory system; Z91.81 History of falling; Z88.5 Allergy status to narcotic agent
CPT/HCPCS: 36415; 70450; 70544; 70547; 70551; 71045; 80053; 80061; 80305; 80320; 82948; 83036; 83735; 84100; 84484; 85025; 85610; 85651; 85730; 86140; 87070; 93005; 93880; 96361; 96374; 97116; 97161; 97530; 99285; G0378; J1815; J2405; J3490; J7030

== ENCOUNTER → 2018-09-09 | Emergency (ER) | payer MEDICARE, OTHER ==
[~2018-09-09] VITALS: Ht 165.1 cm; Wt 95.0 kg
[~2018-09-09] MED LIST changes: +ASPI-1265 PO; +AZIT500T PO; +BENZ-16 PO; +GUAI120L55 PO; -PANT40TA4 PO; +azithromycin 250mg tablet PO ONE; +benzonatate 100mg capsule PO ONE; +guaiFENesin/codeine phos 10ml UD oral syrup PO ONE; +ondansetron 4mg rapidly disintigrating tab PO ONE
[2018-09-09 23:17] LABS: BASOPHILS # (AUTO) 0.1 X10'3 (0-0.2); BASOPHILS % (AUTO) 0.7 % (0-1); EOSINOPHILS # (AUTO) 0.1 X10'3 (0-0.9); HEMATOCRIT 39.4 % (42.0-52.0); HEMOGLOBIN 13.5 g/dl (14.0-17.9); LYMPHOCYTES # (AUTO) 1.3 X10'3 (1.1-4.8); LYMPHOCYTES % (AUTO) 11.4 % (21-51); MEAN CORPUSCULAR HEMOGLOBIN 31.6 PG (27.0-31.0); MEAN CORPUSCULAR HGB CONC 34.3 g/dL (33.0-36.5); MEAN PLATELET VOLUME 8.3 FL (7.4-10.4); MONOCYTES # (AUTO) 1.3 X10'3 (0-0.9); MONOCYTES % (AUTO) 11.2 % (2-12); NEUTROPHILS # (AUTO) 8.5 X10'3 (1.8-7.7); NEUTROPHILS % (AUTO) 75.7 % (42-75); PLATELET COUNT 275 X10'3 (140-440); RED BLOOD COUNT 4.28 X10'6 (4.70-6.10); RED CELL DISTRIBUTION WIDTH 13.7 % (11.5-14.5); WHITE BLOOD COUNT 11.2 X10'3 (4.5-11.0)
[2018-09-09 23:32] LABS: ALANINE AMINOTRANSFERASE 30 U/L (12-78); ALBUMIN 3.1 G/DL (3.4-5.0); ALBUMIN/GLOBULIN RATIO 0.8 (1.1-1.5); ALKALINE PHOSPHATASE 106 IU/L (46-116); ANION GAP 3 (8-16); BILIRUBIN,TOTAL 0.7 MG/DL (0.1-1.0); BLOOD UREA NITROGEN 17 MG/DL (7-18); CALCIUM 8.9 MG/DL (8.5-10.1); CHLORIDE 101 MMOL/L (99-107); CREATININE 0.85 MG/DL (0.60-1.10); GLUCOSE 121 MG/DL (70-104); SODIUM 133 MMOL/L (135-145); TOTAL CARBON DIOXIDE 28.6 MMOL/L (24-32); TOTAL PROTEIN 7.1 G/DL (6.4-8.2); eGFR 89 ML/MIN
[2018-09-09 23:42] LABS: ASPARTATE AMINO TRANSFERASE 42 U/L (10-37); POTASSIUM 4.6 MMOL/L (3.5-5.1)
[2018-09-10 01:10] VITALS: BP 165/56
== END | disposition home or self-care (01) ==
LOC: ER 22:17
DX: R05 Cough (principal); R09.81 Nasal congestion; I48.91 Unspecified atrial fibrillation; I10 Essential (primary) hypertension; E11.9 Type 2 diabetes mellitus without complications; G89.29 Other chronic pain; Z56.0 Unemployment, unspecified; Z79.82 Long term (current) use of aspirin; Z79.2 Long term (current) use of antibiotics; Z79.84 Long term (current) use of oral hypoglycemic drugs; Z79.899 Other long term (current) drug therapy; Z86.73 Personal history of transient ischemic attack (TIA), and cerebral infarction without residual deficits; Z98.890 Other specified postprocedural states
CPT/HCPCS: 36415; 71046; 80053; 85025; 99284

== ENCOUNTER 2019-01-11 09:00 | Outpatient (CLI) | payer MEDICARE, OTHER ==
[~2019-01-11 09:00] MED LIST changes: -AZIT500T PO; -BENZ-16 PO; -CLON0.3T PO; +DILT-94 PO; -DILT240C PO; -HYDR-3965 PO; -azithromycin 250mg tablet PO ONE; -benzonatate 100mg capsule PO ONE; -guaiFENesin/codeine phos 10ml UD oral syrup PO ONE; -ondansetron 4mg rapidly disintigrating tab PO ONE
[2019-01-11 09:31] LABS: BASOPHILS # (AUTO) 0.1 X10'3 (0-0.2); BASOPHILS % (AUTO) 0.7 % (0-1); EOSINOPHILS # (AUTO) 0.1 X10'3 (0-0.9); HEMATOCRIT 47.6 % (42.0-52.0); HEMOGLOBIN 16.5 g/dl (14.0-17.9); LYMPHOCYTES # (AUTO) 1.6 X10'3 (1.1-4.8); LYMPHOCYTES % (AUTO) 22.7 % (21-51); MEAN CORPUSCULAR HGB CONC 34.6 g/dL (33.0-36.5); MEAN CORPUSCULAR VOLUME 92.4 FL (78-98); MEAN PLATELET VOLUME 7.2 FL (7.4-10.4); MONOCYTES # (AUTO) 0.9 X10'3 (0-0.9); MONOCYTES % (AUTO) 13.3 % (2-12); NEUTROPHILS # (AUTO) 4.4 X10'3 (1.8-7.7); NEUTROPHILS % (AUTO) 62.3 % (42-75); PLATELET COUNT 261 X10'3 (140-440); RED BLOOD COUNT 5.15 X10'6 (4.70-6.10); RED CELL DISTRIBUTION WIDTH 14.7 % (11.5-14.5)
[2019-01-11 09:36] LABS: ALBUMIN 3.4 G/DL (3.4-5.0); ANION GAP 6 (8-16); BLOOD UREA NITROGEN 16 MG/DL (7-18); CALCIUM 8.5 MG/DL (8.5-10.1); CHLORIDE 106 MMOL/L (99-107); CREATININE 0.89 MG/DL (0.60-1.10); GLUCOSE 117 MG/DL (70-104); POTASSIUM 4.1 MMOL/L (3.5-5.1); SODIUM 141 MMOL/L (135-145); TOTAL CARBON DIOXIDE 29.4 MMOL/L (24-32); eGFR 85 ML/MIN
== END 2019-01-11 23:59 | disposition home or self-care (01) ==
LOC: SSTAY O 09:00 → EDSTATUS 01-12 09:00
PROVIDERS: ATTEND Internal Medicine Cardiovascular Disease
DX: I48.91 Unspecified atrial fibrillation (principal)
CPT/HCPCS: 36415; 80048; 85025; 85610

== ENCOUNTER 2019-06-18 00:13 | Emergency (ER) | payer MEDICARE ==
[~2019-06-18] VITALS: Ht 165.1 cm; Wt 97.0 kg
[2019-06-18] MEDS ORDERED: PROPARACAINE/FLUORESCEIN ophthalmic drops 5ml bottle RIGHTEYE ONE (02:20)
[2019-06-18] MEDS ORDERED: proparacaine 0.5% ophthalmic drops 15ml EACHEYE ONE (02:25)
[2019-06-18 03:32] VITALS: BP 166/103
[2019-06-18] MEDS ORDERED: proparacaine 0.5% ophthalmic drops 15ml LEFTEYE ONE (04:10)
[2019-06-20] MEDS ORDERED: Marijuana (07:37)
[2019-06-20] MEDS ORDERED: ENOX100S3 SQ (07:39)
== END 2019-06-18 04:33 | disposition left against medical advice (07) ==
LOC: ER 00:15
DX: H57.11 Ocular pain, right eye (principal); Z53.21 Procedure and treatment not carried out due to patient leaving prior to being seen by health care provider

== ENCOUNTER 2023-11-21 12:58 | Emergency (ER) | payer MEDICARE ==
[~2023-11-21] VITALS: Ht 167.6 cm; Wt 92.0 kg
[~2023-11-21 12:58] MED LIST changes: +CARV25TA PO; -CARV25TA2 PO; +CHOL100046 PO; +CYAN500T46 PO; -DILT-94 PO; -FLEC100T PO; -GUAI120L55 PO; -LOSA25TA41 PO; +METF-1203 PO; -METF-950 PO; +MORP15TA PO; +Marijuana; -ONDA4TAB6 PO
[2023-11-21 13:50] LABS: BASOPHILS # (AUTO) 0.1 X10'3 (0-0.2); BASOPHILS % (AUTO) 0.9 % (0-1); EOSINOPHILS # (AUTO) 0.1 X10'3 (0-0.9); EOSINOPHILS % (AUTO) 0.9 % (0-6); HEMOGLOBIN 15.6 g/dl (14.0-17.9); LYMPHOCYTES # (AUTO) 1.8 X10'3 (1.1-4.8); LYMPHOCYTES % (AUTO) 21.3 % (21-51); MEAN CORPUSCULAR HEMOGLOBIN 31.6 PG (27.0-31.0); MEAN CORPUSCULAR HGB CONC 33.3 g/dL (33.0-36.5); MEAN PLATELET VOLUME 7.9 FL (7.4-10.4); MONOCYTES # (AUTO) 0.9 X10'3 (0-0.9); MONOCYTES % (AUTO) 9.9 % (2-12); NEUTROPHILS # (AUTO) 5.7 X10'3 (1.8-7.7); PLATELET COUNT 216 X10'3 (140-440); RED BLOOD COUNT 4.94 X10'6 (4.70-6.10); RED CELL DISTRIBUTION WIDTH 14.1 % (11.5-14.5); WHITE BLOOD COUNT 8.6 X10'3 (4.5-11.0)
[2023-11-21 14:07] LABS: ALANINE AMINOTRANSFERASE 30 U/L (12-78); ALBUMIN 3.5 G/DL (3.4-5.0); ALBUMIN/GLOBULIN RATIO 0.9 (1.1-1.5); ALKALINE PHOSPHATASE 109 IU/L (46-116); ANION GAP 5 (8-16); ASPARTATE AMINO TRANSFERASE 17 U/L (10-37); BILIRUBIN,TOTAL 0.9 MG/DL (0.1-1.0); BLOOD UREA NITROGEN 13 MG/DL (7-18); BUN/CREATININE RATIO 14.4 (10.0-20.0); CALCIUM 9.6 MG/DL (8.5-10.1); CHLORIDE 103 MMOL/L (99-107); GLUCOSE 107 MG/DL (70-104); LIPASE 19 U/L (16-77); POTASSIUM 4.2 MMOL/L (3.5-5.1); SODIUM 138 MMOL/L (135-145); TOTAL CARBON DIOXIDE 29.7 MMOL/L (24-32); TOTAL PROTEIN 7.4 G/DL (6.4-8.2); eCRCL 64 ML/MIN; eGFR 82 ML/MIN
[2023-11-21] MEDS ORDERED: iohexol 300mg/ml 100ml inj. ONE (17:09)
[2023-11-21 18:11] LABS: BILIRUBIN,URINE NEGATIVE (Neg); CLARITY,URINE CLEAR (Clear); COLOR,URINE YELLOW (Yellow); GLUCOSE, URINE NEGATIVE (Neg); KETONES,URINE NEGATIVE (Neg); LEUKOCYTE ESTERASE ,URINE NEGATIVE (Neg); NITRITES, URINE NEGATIVE (Neg); OCCULT BLOOD,URINE TRACE-INTACT (Neg); PROTEIN,URINE NEGATIVE (Neg); UROBILINOGEN,URINE 0.2 E.U/dL (0.2-1.0)
[2023-11-21] MEDS: normal saline 1000ml 1,000 ML IV ONE (18:11)
[2023-11-21] MEDS: hydrALAZINE 20mg/ml inj. IV ONE (18:12)
[2023-11-21] MEDS: fentaNYL/PF 50MCG/1 ML 2ML syringe IV ONE (18:12)
[2023-11-21] MEDS: cloNIDine 0.1 mg tablet PO ONE (18:12)
[2023-11-21 18:13] LABS: UA COLLECTION TYPE URINAL
[2023-11-21 18:16] LABS: BACTERIA,URINE NONE SEEN /HPF (Neg); MUCUS STRANDS NONE SEEN /LPF (Neg); RBC,URINE 0-2 /HPF (0-2); SQUAMOUS EPITHELIAL CELL,UR NONE SEEN /LPF (FEW); WBC,URINE NONE SEEN /HPF (0-4)
[2023-11-21 19:29] VITALS: TEMP 98.3
[2023-11-21 19:33] VITALS: RESP 15
[2023-11-21] MEDS: HYDROmorphone 1 mg/ml syringe IV ONE (19:33)
[2023-11-21 20:11] VITALS: BP 161/76; PULSE 84; O2SAT 99
== END 2023-11-21 20:21 | disposition home or self-care (01) ==
LOC: ER 12:58
DX: R10.84 Generalized abdominal pain (principal); I48.91 Unspecified atrial fibrillation; I10 Essential (primary) hypertension; E11.9 Type 2 diabetes mellitus without complications; G89.29 Other chronic pain; M54.9 Dorsalgia, unspecified; Z86.73 Personal history of transient ischemic attack (TIA), and cerebral infarction without residual deficits; Z98.890 Other specified postprocedural states; Z56.0 Unemployment, unspecified; Z79.82 Long term (current) use of aspirin; Z79.84 Long term (current) use of oral hypoglycemic drugs; Z79.899 Other long term (current) drug therapy
CPT/HCPCS: 36415; 74177; 80053; 81001; 83690; 85025; 96374; 96375; 99285; J0360; J1170; J3010; J7030; Q9967